=== PATIENT | female | born 1995 ===

== ENCOUNTER 2018-02-13 12:30 | Inpatient (IN) | payer OTHER ==
[~2018-02-13] VITALS: Ht 157.5 cm; Wt 65.8 kg
[2018-03-09] MEDS ORDERED: PRENATAL 19 TA1 EACH PO (07:14)
[2018-03-09] MEDS ORDERED: MACRODANTIN50 MG PO (07:15)
[2018-03-09] MEDS ORDERED: STRESS FORMULA1 EAC2 PO (07:16)
== END 2018-03-11 12:26 | disposition home or self-care (01) | DRG 775 ==
LOC: LDR 03-09 03:10 → OB/GYN 03-09 16:18 → LDR 03-15 12:30
PROC: 0UQGXZZ Repair Vagina, External Approach (ICD-10-PCS; principal; 2018-03-09)
PROC: 10E0XZZ Delivery of Products of Conception, External Approach (ICD-10-PCS; 2018-03-09)
PROC: 4A1HXCZ Monitoring of Products of Conception, Cardiac Rate, External Approach (ICD-10-PCS; 2018-03-09)
DX: O71.4 Obstetric high vaginal laceration alone (principal); Z3A.39 39 weeks gestation of pregnancy; Z37.0 Single live birth

== ENCOUNTER 2018-02-19 10:41 | Outpatient (CLI) | payer OTHER | END 2018-02-19 11:40 | disposition home or self-care (01) | LOC: NST 10:41 | DX: Z34.83 Encounter for supervision of other normal pregnancy, third trimester (principal) ==

== ENCOUNTER 2024-07-02 07:58 | Outpatient (CLI) | payer OTHER ==
[~2024-07-02 07:58] MED LIST: MACRODANTIN50 MG PO; PRENATAL 19 TA1 EACH PO; STRESS FORMULA1 EAC2 PO
== END 2024-07-02 08:15 | disposition home or self-care (01) ==
LOC: RAD 07:58
PROVIDERS: ATTEND Physical Medicine & Rehabilitation
DX: M25.562 Pain in left knee (principal); S82.812D Torus fracture of upper end of left fibula, subsequent encounter for fracture with routine healing

== ENCOUNTER 2024-07-20 07:49 | Outpatient (CLI) | payer OTHER | END 2024-07-20 07:50 | disposition home or self-care (01) | LOC: NUCLEAR 07:49 | DX: I82.90 Acute embolism and thrombosis of unspecified vein (principal); S82.852D Displaced trimalleolar fracture of left lower leg, subsequent encounter for closed fracture with routine healing ==